=== PATIENT | male | born 1970 | race African-American/Black ===

== ENCOUNTER 2022-09-04 19:20 | Inpatient (IN) | payer OTHER ==
[2022-09-04 22:23] VITALS: BMI 27.9
[2022-09-05] MEDS ORDERED: ACETAMINOPHEN 325 MG TABLET (FP) PO PRN (03:57)
[2022-09-05] MEDS ORDERED: LOPERAMIDE HCL 2 MG CAPSULE PO PRN (03:57)
[2022-09-05] MEDS ORDERED: MAG HYDROX/AL HYDROX/SIMETH 30 ML UNIT-DOSE CUP PO PRN (03:57)
[2022-09-05] MEDS ORDERED: NICOTINE 10 MG CARTRIDGE (INHALER) IH PRN (03:57)
[2022-09-05] MEDS ORDERED: guaiFENesin 600 MG TABLET.ER (FP) PO PRN (03:57)
[2022-09-05] MEDS ORDERED: BENZONATATE 200 MG CAPSULE PO PRN (03:57)
[2022-09-05] MEDS ORDERED: NALOXONE HCL 0.4 MG/ML VIAL IM PRN (03:57)
[2022-09-05] MEDS ORDERED: BENZOCAINE/MENTHOL (CHLORASEPTIC ) LOZENGE MM PRN (03:57)
[2022-09-05] MEDS ORDERED: MAGNESIUM HYDROX 2400MG/30ML ORAL SUSPENSION 30 ML CUP PO PRN (03:57)
[2022-09-05] MEDS ORDERED: IBUPROFEN 400 MG TABLET (FP) PO PRN (03:57)
[2022-09-05] MEDS ORDERED: ONDANSETRON *ODT* 4 MG TABLET SL PRN (03:57)
[2022-09-05] MEDS ORDERED: DICYCLOMINE HCL 10 MG CAPSULE PO PRN (03:57)
[2022-09-05] MEDS ORDERED: POLYETHYLENE GLYCOL (HEALTHYLAX) 3350 17 GM PACKET PO PRN (03:57)
[2022-09-05] MEDS ORDERED: NALOXONE HCL (KLOXXADO) 8 MG SPRAY NS PRN (03:57)
[2022-09-05] MEDS ORDERED: BISMUTH SUBSALICYLATE 524 MG/30 ML PO PRN (03:57)
[2022-09-05] MEDS: METHOCARBAMOL 500 MG TABLET PO PRN ×2 (07:04→22:38)
[2022-09-05] MEDS: PRENATAL VITAMINS W/ FOLIC ACID TABLET (FP) PO SCH ×2 (10:45→10:46)
[2022-09-05] MEDS ORDERED: cloNIDine HCL 0.1 MG TABLET PO PRN (11:03)
[2022-09-05] MEDS: methaDONE HCL 10 MG TABLET (FOR DETOX USE ONLY) PO ONE ×2 (12:42→12:47)
[2022-09-05] MEDS ORDERED: methaDONE HCL 10 MG TABLET (FOR DETOX USE ONLY) PO ONE (12:45)
[2022-09-05] MEDS: TAMSULOSIN HCL 0.4 MG CAP PO SCH (12:45)
[2022-09-05] MEDS ORDERED: MELATONIN 5 MG TABLETS PO SCH (22:00)
[2022-09-05] MEDS: THIAMINE HCL 100 MG TABLET (FP) PO SCH (22:38)
[2022-09-06] MEDS: TAMSULOSIN HCL 0.4 MG CAP PO SCH (08:57)
[2022-09-06] MEDS: PRENATAL VITAMINS W/ FOLIC ACID TABLET (FP) PO SCH (10:39)
[2022-09-06 12:21] LABS: CALCIUM 9.3 mg/dL (8.5-10.1)
[2022-09-06 12:22] LABS: BLOOD UREA NITROGEN 10.4 mg/dL (7-18)
[2022-09-06 12:25] LABS: CREATININE 0.9 mg/dL (0.55-1.3)
[2022-09-06 12:26] LABS: BILIRUBIN,TOTAL 0.5 mg/dL (0.2-1); TOT PROT 6.5 g/dl (6.4-8.2)
[2022-09-06 12:47] LABS: HEMATOCRIT 37.3 % (35.4-49); HEMOGLOBIN 12.6 GM/dL (11.7-16.9); MCH 28.2 pg (25.7-33.7); MCHC 33.7 g/dl (32.0-35.9); MEAN CELL VOLUME 83.6 fl (80-96); MEAN PLT VOLUME 9.1 fl (7.5-11.1); PLATELET COUNT 209 10^3/uL (134-434); RBC 4.47 M/mm3 (4.00-5.60); RDW 15.9 % (11.9-15.9); WHITE BLOOD COUNT 4.3 K/mm3 (4.0-10.0)
[2022-09-06] MEDS: QUEtiapine FUMARATE 100 MG TABLET (FP) PO SCH (22:53)
[2022-09-06] MEDS: THIAMINE HCL 100 MG TABLET (FP) PO SCH (22:53)
[2022-09-07] MEDS: IBUPROFEN 600 MG TABLET (FP) PO PRN (01:24)
[2022-09-07] MEDS: TAMSULOSIN HCL 0.4 MG CAP PO SCH (07:38)
[2022-09-07] MEDS ORDERED: methaDONE HCL 10 MG TABLET (FOR DETOX USE ONLY) PO ONE (10:00)
[2022-09-07] MEDS: METHOCARBAMOL 500 MG TABLET PO PRN (10:02)
[2022-09-07] MEDS: PRENATAL VITAMINS W/ FOLIC ACID TABLET (FP) PO SCH (10:02)
[2022-09-07] MEDS: QUEtiapine FUMARATE 100 MG TABLET (FP) PO SCH (23:00)
[2022-09-07] MEDS: THIAMINE HCL 100 MG TABLET (FP) PO SCH (23:00)
[2022-09-08] MEDS: TAMSULOSIN HCL 0.4 MG CAP PO SCH (08:52)
[2022-09-08] MEDS: PRENATAL VITAMINS W/ FOLIC ACID TABLET (FP) PO SCH (10:24)
[2022-09-08] MEDS: METHOCARBAMOL 500 MG TABLET PO PRN ×2 (10:26→22:57)
[2022-09-08 13:52] VITALS: RESP 18
[2022-09-08] MEDS: QUEtiapine FUMARATE 100 MG TABLET (FP) PO SCH (22:54)
[2022-09-08] MEDS: THIAMINE HCL 100 MG TABLET (FP) PO SCH (22:54)
[2022-09-09] MEDS: TAMSULOSIN HCL 0.4 MG CAP PO SCH (07:35)
[2022-09-09] MEDS ORDERED: methaDONE HCL 10 MG TABLET (FOR DETOX USE ONLY) PO ONE (10:00)
[2022-09-09] MEDS: PRENATAL VITAMINS W/ FOLIC ACID TABLET (FP) PO SCH (10:28)
[2022-09-09] MEDS: IBUPROFEN 600 MG TABLET (FP) PO PRN (10:28)
[2022-09-09] MEDS: METHOCARBAMOL 500 MG TABLET PO PRN (10:31)
[2022-09-09 14:09] VITALS: BP 141/73; PULSE 67; TEMP 98.6
== END 2022-09-09 16:15 | disposition home or self-care (01) | DRG 773 ==
LOC: YASAS 19:20 → UNDOADMIN 09-05 05:18 → Y6N 09-05 05:18
PROVIDERS: ADMIT Allergy & Immunology; ATTEND Surgery
PROC: HZ2ZZZZ Detoxification Services for Substance Abuse Treatment (ICD-10-PCS; principal; 2022-09-05)
DX: F11.23 Opioid dependence with withdrawal (principal); F14.20 Cocaine dependence, uncomplicated; F17.220 Nicotine dependence, chewing tobacco, uncomplicated; F20.9 Schizophrenia, unspecified; F19.280 Other psychoactive substance dependence with psychoactive substance-induced anxiety disorder; F19.282 Other psychoactive substance dependence with psychoactive substance-induced sleep disorder; F19.24 Other psychoactive substance dependence with psychoactive substance-induced mood disorder; I10 Essential (primary) hypertension; J45.909 Unspecified asthma, uncomplicated; N40.0 Benign prostatic hyperplasia without lower urinary tract symptoms; Z99.89 Dependence on other enabling machines and devices
CPT/HCPCS: 36415; 80053; 80307; 85027; 86780; 99281-25; C9803-CS; J1100; U0003; U0005